=== PATIENT | male | born 1955 | race African-American/Black ===

== ENCOUNTER 2020-08-26 15:35 | Emergency (ER) | payer MEDICARE, MEDICAID ==
[~2020-08-26] VITALS: Ht 180.3 cm; Wt 78.0 kg
[2020-08-26] MEDS ORDERED: NAPR-677 PO (15:42)
[2020-08-26] MEDS ORDERED: GLIP5TAB12 PO (15:42)
[2020-08-26] MEDS ORDERED: TRIA1TAB94 PO (15:42)
[2020-08-26] MEDS ORDERED: [UNRECOGNIZED DRUG - OTHER] (15:42)
[2020-08-26] MEDS ORDERED: BUME1TAB8 PO (15:42)
[2020-08-26 17:42] LABS: BASOPHILS % 0.8 % (0.0-2.0); HEMATOCRIT. 33.3 % (42.0-52.0); HEMOGLOBIN. 11.4 g/dL (14.0-18.0); LYMPHOCYTES % 23.9 % (20.0-50.0); MEAN CORPUSCULAR HEMOGLOBIN 33.2 pg (28.0-32.0); MEAN CORPUSCULAR VOLUME 97.1 fL (80.0-94.0); MEAN PLATELET VOLUME 8.6 fl (7.4-10.4); MONOCYTES % 8.7 % (2.0-8.0); NEUTROPHILS % 64.6 % (40.0-76.0); PLATELET 94 x1000/uL (130-400); RED BLOOD CELL COUNT 3.43 mill/uL (4.7-6.1); RED CELL DISTRIBUTION WIDTH 13.3 % (11.6-14.6)
[2020-08-26 17:50] LABS: CHLORIDE 109 mEq/L (98-107)
[2020-08-26 18:52] VITALS: BP 117/69
[2020-08-26] MEDS ORDERED: ONDA4TAB5 MT (18:53)
== END 2020-08-26 19:00 | disposition home or self-care (01) ==
LOC: ER 15:35
DX: K52.9 Noninfective gastroenteritis and colitis, unspecified (principal); D72.819 Decreased white blood cell count, unspecified; D69.6 Thrombocytopenia, unspecified; E11.65 Type 2 diabetes mellitus with hyperglycemia; I10 Essential (primary) hypertension; Z79.899 Other long term (current) drug therapy
CPT/HCPCS: 36415; 80053; 85025; 99283

== ENCOUNTER 2022-06-15 13:33 | Emergency (ER) | payer MEDICARE, MEDICAID ==
[~2022-06-15] VITALS: Ht 175.3 cm; Wt 105.0 kg
[~2022-06-15 13:33] MED LIST: BUME1TAB8 PO; GLIP5TAB12 PO; NAPR-677 PO; ONDA4TAB5 MT; TRIA1TAB94 PO; [UNRECOGNIZED DRUG - OTHER]
[2022-06-15 15:51] LABS: BASOPHILS % 1.3 % (0.0-2.0); EOSINOPHILS % 4.7 % (0.0-5.0); HEMATOCRIT. 40.7 % (42.0-52.0); HEMOGLOBIN. 13.7 g/dL (14.0-18.0); LYMPHOCYTES % 22.2 % (20.0-50.0); MEAN CORPUSCULAR VOLUME 97.9 fL (80.0-94.0); MEAN PLATELET VOLUME 7.2 fl (7.4-10.4); MONOCYTES % 9.7 % (2.0-8.0); NEUTROPHILS % 62.1 % (40.0-76.0); PLATELET 125 x1000/uL (130-400); RED BLOOD CELL COUNT 4.15 mill/uL (4.7-6.1); RED CELL DISTRIBUTION WIDTH 12.8 % (11.6-14.6)
[2022-06-15 16:16] LABS: CHLORIDE 105 mEq/L (98-107)
[2022-06-15 18:29] VITALS: BP 125/80
== END 2022-06-15 18:38 | disposition home or self-care (01) ==
LOC: ER 13:33 → CANBEDREQ 06-17 01:51
DX: R55 Syncope and collapse (principal); I10 Essential (primary) hypertension; E11.9 Type 2 diabetes mellitus without complications; Z20.822 Contact with and (suspected) exposure to COVID-19
CPT/HCPCS: 36415; 71045; 80053; 83880; 84484; 85025; 87426; 87804; 93005; 99285; C9803